=== PATIENT | female | born 2005 | race Caucasian/White ===

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

== ENCOUNTER 2024-11-15 07:08 | Emergency (ER) | payer OTHER ==
[~2024-11-15] VITALS: Ht 160 cm; Wt 69.2 kg
[~2024-11-15 07:08] MED LIST changes: +ZOFRAN ODT4 MG PO
[2024-11-15] MEDS ORDERED: prenatal PO (07:31)
[2024-11-15] MEDS ORDERED: NS 1,000 ML IV SCH (07:45)
[2024-11-15 07:58] LABS: HEMATOCRIT 34.7 % (37.0-47.0); MEAN CELL VOLUME 84 fl (78-100); MEAN CORPUSCULAR HEMOGLOBIN 29 pg (27-31); MEAN CORPUSCULAR HGB CONC 35 g/dL (33-37); MEAN PLATELET VOLUME 9.8 fl (7.4-10.4); PLATELET COUNT 291 K/mm3 (130-400); RED BLOOD COUNT 4.11 M/mm3 (4.10-5.30); RED CELL DISTRIBUTION WIDTH 12.3 % (11.5-14.5); WHITE BLOOD COUNT 7.8 K/mm3 (4.8-10.8)
[2024-11-15] MEDS ORDERED: Ondansetron 4 MG/2 ML VIAL IV ONE (08:00)
[2024-11-15 08:03] LABS: ALBUMIN 3.9 g/dL (3.5-5.0)
[2024-11-15 08:05] LABS: TOTAL PROTEIN 7.2 g/dL (6.4-8.3)
[2024-11-15 08:07] LABS: TOTAL BILIRUBIN 0.8 mg/dL (0.2-1.2)
[2024-11-15 08:29] LABS: URINE APPEARANCE CLOUDY (CLEAR); URINE COLOR ORANGE (YELLOW)
[2024-11-15 08:30] LABS: PH-URINE 5.5 (5.0 - 8.0); URINE BILIRUBIN 2+ (NEGATIVE); URINE BLOOD NEGATIVE (NEGATIVE); URINE GLUCOSE NEGATIVE (NEGATIVE); URINE KETONE 3+ (NEGATIVE); URINE LEUKOCYTE ESTERASE NEGATIVE (NEGATIVE); URINE MUCUS PRESENT (NOT PRESENT); URINE NITRATE NEGATIVE (NEGATIVE); URINE PROTEIN(semi-quant) 2+ (NEGATIVE)
[2024-11-15 08:33] LABS: LYMPHOCYTE 7 % (20-51); MONOCYTE 3 % (3-10); NEUTROPHILS 90 % (42-75)
[2024-11-15] MEDS ORDERED: MIRALAX119 GM PO (09:26)
[2024-11-15] MEDS ORDERED: ZOFRAN ODT4 MG PO (09:27)
[2024-11-15 09:43] LABS: URINE APPEARANCE CLEAR (CLEAR); URINE BILIRUBIN 2+ (NEGATIVE); URINE COLOR AMBER (YELLOW); URINE GLUCOSE NEGATIVE (NEGATIVE); URINE KETONE 3+ (NEGATIVE); URINE NITRATE NEGATIVE (NEGATIVE); URINE PROTEIN(semi-quant) 1+ (NEGATIVE)
[2024-11-15 09:44] LABS: URINE BLOOD NEGATIVE (NEGATIVE); URINE LEUKOCYTE ESTERASE NEGATIVE (NEGATIVE); URINE MUCUS PRESENT (NOT PRESENT)
[2024-11-15] MEDS ORDERED: CEFPODOXIME PR200 M1 PO (11:23)
[2024-11-15 11:30] LABS: PH-URINE 5.5 (5.0 - 8.0); URINE APPEARANCE CLEAR (CLEAR); URINE BILIRUBIN NEGATIVE (NEGATIVE); URINE BLOOD NEGATIVE (NEGATIVE); URINE COLOR YELLOW (YELLOW); URINE GLUCOSE NEGATIVE (NEGATIVE); URINE KETONE 4+ (NEGATIVE); URINE LEUKOCYTE ESTERASE NEGATIVE (NEGATIVE); URINE NITRATE NEGATIVE (NEGATIVE); URINE PROTEIN(semi-quant) NEGATIVE (NEGATIVE); URINE WBC 0-1 /hpf (0-3)
[2024-11-15 11:46] VITALS: BP 99/61
== END 2024-11-15 11:47 | disposition home or self-care (01) ==
LOC: ED 07:08
PROVIDERS: Family Medicine
DX: O21.9 Vomiting of pregnancy, unspecified (principal); O99.011 Anemia complicating pregnancy, first trimester; D64.9 Anemia, unspecified; O99.611 Diseases of the digestive system complicating pregnancy, first trimester; K59.00 Constipation, unspecified; O99.891 Other specified diseases and conditions complicating pregnancy; R30.0 Dysuria; Z3A.11 11 weeks gestation of pregnancy; Z88.2 Allergy status to sulfonamides; Z88.1 Allergy status to other antibiotic agents
CPT/HCPCS: J2405; J7030; J7120